=== PATIENT | female | born 1935 | race Caucasian/White ===

== ENCOUNTER 2018-02-09 10:03 | Inpatient (IN) | payer MEDICARE, BC ==
[~2018-02-09] VITALS: Ht 160 cm; Wt 53.5 kg
[2018-02-09 11:03] LABS: BASOPHILS % (AUTO) 1.2 % (0.0-2.0); EOSINOPHILS % (AUTO) 5.6 % (0.0-3.0); HEMATOCRIT 33.8 % (37.0-47.0); HEMOGLOBIN 10.8 G/DL (12.0-16.0); LYMPHOCYTES % (AUTO) 24.4 % (20.0-45.0); MEAN CORPUSCULAR VOLUME 105 FL (80-99); MONOCYTES % (AUTO) 8.7 % (1.0-10.0); NEUTROPHILS % (AUTO) 60.2 % (45.0-75.0); PLATELET COUNT 267 K/UL (150-450); RED BLOOD COUNT 3.23 M/UL (4.20-5.40); WHITE BLOOD COUNT 5.2 K/UL (4.8-10.8)
[2018-02-09 11:22] LABS: ANION GAP 7 mmol/L (5-15); BLOOD UREA NITROGEN 20 mg/dL (7-18); CALCIUM 9.4 MG/DL (8.5-10.1); CARBON DIOXIDE 26 MMOL/L (21-32); CHLORIDE 104 MMOL/L (98-107); CREATININE 1.5 MG/DL (0.55-1.30); POTASSIUM 4.2 MMOL/L (3.5-5.1); SODIUM 137 MMOL/L (136-145)
[2018-02-09 11:28] LABS: ALANINE AMINOTRANSFERASE 17 U/L (12-78); ALBUMIN 3.4 G/DL (3.4-5.0); ALBUMIN/GLOBULIN RATIO 0.9 (1.0-2.7); ALKALINE PHOSPHATASE 73 U/L (46-116); ASPARTATE AMINO TRANSFERASE 19 U/L (15-37); BILIRUBIN,TOTAL 0.3 MG/DL (0.2-1.0)
[2018-02-09 11:35] LABS: APPEARANCE,URINE CLEAR; BILIRUBIN, URINE NEGATIVE (NEGATIVE); COLOR,URINE PALE YELLOW; GLUCOSE, URINE (UA) NEGATIVE (NEGATIVE); KETONES,URINE NEGATIVE (NEGATIVE); LEUKOCYTE ESTERASE ,URINE NEGATIVE (NEGATIVE); NITRITE,URINE NEGATIVE (NEGATIVE); PH,URINE 6 (4.5-8.0); PROTEIN,URINE NEGATIVE (NEGATIVE); UROBILINOGEN,URINE NORMAL MG/DL (0.0-1.0)
--- NOTE | 2018-02-09 11:45 | Diagnostic Imaging Report ---
EXAM: CT Head Without Intravenous Contrast CLINICAL HISTORY: PAIN TECHNIQUE: Axial computed tomography images of the head/brain without intravenous contrast. CTDI is 70.38 + 0.15 mGy and DLP is 1495 mGy-cm. One or more of the following dose reduction techniques were used: automated exposure control, adjustment of the mA and/or kV according to patient size, use of iterative reconstruction technique. COMPARISON: No relevant prior studies available. FINDINGS: Brain: No intracranial hemorrhage. 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 Cataract surgery. Ventricles: No ventriculomegaly. Bones/joints: No acute fracture. Soft tissues: Unremarkable. Sinuses: No acute sinusitis. Mastoid air cells: No mastoid effusion. IMPRESSION: No acute findings.
--- NOTE | 2018-02-09 11:48 | Diagnostic Imaging Report ---
EXAM: CT Lumbar Spine Without Intravenous Contrast CLINICAL HISTORY: PAIN TECHNIQUE: Axial computed tomography images of the lumbar spine without intravenous contrast. CTDI is 18.28 + 0.5 mGy and DLP is 473 mGy-cm. One or more of the following dose reduction techniques were used: automated exposure control, adjustment of the mA and/or kV according to patient size, use of iterative reconstruction technique. COMPARISON: No relevant prior studies available. FINDINGS: Vertebrae: Compression fracture of T12. No retropulsion. Discs/spinal canal/neural foramina: Degenerative changes throughout the lumbar spine. Soft tissues: Unremarkable. Other findings: Hiatal hernia. IMPRESSION: Compression fracture of T12. No retropulsion.
[2018-02-09 12:03] VITALS: BP 107/53
[2018-02-09] MEDS ORDERED: Sodium Chloride 500ML 500 ML IV ONE (12:15)
--- NOTE | 2018-02-09 13:12 | Emergency Room Report ---
History of Present Illness General Chief Complaint: Multiple Trauma/Fall Present Illness HPI Patient is 82-year-old female brought in by EMS after recurrent falls. Patient had been staying at [facility]. The patient was noted to have multiple falls over the past few days. She was complaining of some low back pain. He had patient prior history dementia. Street is markedly limited by patient's mental status. Patient was noted to have the prior DO NOT RESUSCITATE Allergies: Coded Allergies: PENICILLINS (Verified Allergy, Unknown, 02/09/18) Patient History Now: No Reviewed Nursing Documentation: PMH: Agreed; PSxH: Agreed Nursing Documentation-PMH Hx Cardiac Problems: Yes - atherosclerosis of aorta Hx COPD: Yes Hx Gastrointestinal Problems: Yes - hiatal hernia History Of Psychiatric Problem: Yes - depression Hx Neurological Problems: Yes - dementia, encephalopathy Review of Systems All Other Systems: limited - by mental status Physical Exam Vital Signs Date Time Temp Pulse Resp B/P (MAP) Pulse Ox O2 Delivery O2 Flow Rate FiO2 02/09/18 09:53 98.4 87 18 118/78 95 Room Air 98.4 Sp02 EP Interpretation: reviewed, normal General Appearance: normal inspection, well appearing, no apparent distress, alert, Chronically Ill Head: atraumatic ENT: normal ENT inspection, hearing grossly normal, normal voice, dry mucus membranes Neck: normal inspection, supple, no bony tend, limited range of motion Respiratory: normal inspection, lungs clear, normal breath sounds, no respiratory distress, no retraction, no wheezing Cardiovascular #1: regular rate, rhythm, no edema Gastrointestinal: normal inspection, normal bowel sounds, non tender, soft, no guarding, no hernia Genitourinary: no CVA tenderness Musculoskeletal: normal inspection, back normal, normal range of motion Neurologic: normal inspection, alert, responsive, motor weakness - slow speech Psychiatric: normal inspection, judgement/insight normal, mood/affect normal Skin: normal inspection, normal color, no rash Medical Decision Making Diagnostic Impression: Primary Impression: Fall Additional Impressions: T12 compression fracture Dementia Dehydration ER Course Patient presented for fall.Differential diagnosis included was not limited to neck fracture, CVA, close head injury, syncopal episode, basilar ischemia. Because of complexity of patient's case laboratory testing and imaging studies were ordered.The patient was noted to have evidence of dehydration. CT of the head read by radiology showed atrophic changes without evident fracture or intracranial hemorrhage. CT of lumbar spine showed normal bony alignment with T12 compression fracture. Laboratory testing showed a mildly elevated BUN/ creatinine. Dr. Dino Lagos was contacted for inpatient management Labs Test 02/09/18 10:30 02/09/18 10:50 Urine Color Pale yellow Urine Appearance Clear Urine pH 6 (4.5-8.0) Urine Specific Rogers 1.015 (1.005-1.035) Urine Protein Negative (NEGATIVE) Urine Glucose (UA) Negative (NEGATIVE) Urine Ketones Negative (NEGATIVE) Urine Occult Blood Negative (NEGATIVE) Urine Nitrite Negative (NEGATIVE) Urine Bilirubin Negative (NEGATIVE) Urine Urobilinogen Normal MG/DL (0.0-1.0) Urine Leukocyte Esterase Negative (NEGATIVE) Urine RBC 0-2 /HPF (0 - 2) Urine WBC 0-2 /HPF (0 - 2) Urine Squamous Epithelial Cells Occasional /LPF Urine Bacteria Occasional /HPF (NONE) White Blood Count 5.2 K/UL (4.8-10.8) Red Blood Count 3.23 M/UL (4.20-5.40) Hemoglobin 10.8 G/DL (12.0-16.0) Hematocrit 33.8 % (37.0-47.0) Mean Corpuscular Volume 105 FL (80-99) Mean Corpuscular Hemoglobin 33.5 PG (27.0-31.0) Mean Corpuscular Hemoglobin Concent 32.0 G/DL (32.0-36.0) Red Cell Distribution Width 13.0 % (11.6-14.8) Platelet Count 267 K/UL (150-450) Mean Platelet Volume 6.1 FL (6.5-10.1) Neutrophils (%) (Auto) 60.2 % (45.0-75.0) Lymphocytes (%) (Auto) 24.4 % (20.0-45.0) Monocytes (%) (Auto) 8.7 % (1.0-10.0) Eosinophils (%) (Auto) 5.6 % (0.0-3.0) Basophils (%) (Auto) 1.2 % (0.0-2.0) Prothrombin Time 10.3 SEC (9.30-11.50) Prothromb Time International Ratio 1.0 (0.9-1.1) Activated Partial Thromboplast Time 25 SEC (23-33) Sodium Level 137 MMOL/L (136-145) Potassium Level 4.2 MMOL/L (3.5-5.1) Chloride Level 104 MMOL/L (98-107) Carbon Dioxide Level 26 MMOL/L (21-32) Anion Gap 7 mmol/L (5-15) Blood Urea Nitrogen 20 mg/dL (7-18) Creatinine 1.5 MG/DL (0.55-1.30) Estimat Glomerular Filtration Rate mL/min (>60) Glucose Level 89 MG/DL (74-106) Lactic Acid Level 1.30 mmol/L (0.4-2.0) Calcium Level 9.4 MG/DL (8.5-10.1) Total Bilirubin 0.3 MG/DL (0.2-1.0) Aspartate Amino Transf (AST/SGOT) 19 U/L (15-37) Alanine Aminotransferase (ALT/SGPT) 17 U/L (12-78) Alkaline Phosphatase 73 U/L (46-116) Troponin I 0.000 ng/mL (0.000-0.056) Total Protein 7.3 G/DL (6.4-8.2) Albumin 3.4 G/DL (3.4-5.0) Globulin 3.9 g/dL Albumin/Globulin Ratio 0.9 (1.0-2.7) Thyroid Stimulating Hormone (TSH) 0.415 uiU/mL (0.358-3.740) Last Vital Signs Date Time Temp Pulse Resp B/P (MAP) Pulse Ox O2 Delivery O2 Flow Rate FiO2 02/09/18 12:03 98.4 85 13 107/53 97 Room Air 98.4 Status: unchanged Disposition: ADMITTED INPATIENT Condition: Stable Referrals: NON PHYSICIAN (PCP) Panda Goodwin MD Feb 09, 2018 13:12
[2018-02-09 14:00] VITALS: BP 113/55
[2018-02-09] MEDS ORDERED: LAMOTRIGINE150 MG PO (15:26)
[2018-02-09] MEDS ORDERED: ABILIFY2 MG ORAL (15:26)
[2018-02-09] MEDS ORDERED: PAROXETINE HCL40 MG ORAL (15:26)
[2018-02-09] MEDS ORDERED: ALPRAZOLAM0.25 M2 ORAL (15:26)
[2018-02-09] MEDS ORDERED: VITAMIN B122500 MCG PO (15:26)
[2018-02-09] MEDS ORDERED: VITAMIN D400 INTLU ORAL (15:26)
[2018-02-09] MEDS ORDERED: GABAPENTIN100 MG ORAL (15:26)
[2018-02-09] MEDS ORDERED: CRESTOR10 M1 ORAL (15:26)
[2018-02-09] MEDS ORDERED: SEROQUEL50 MG ORAL (15:26)
[2018-02-09] MEDS ORDERED: TYLENOL325 M1 PO (15:26)
[2018-02-09] MEDS ORDERED: NAMENDA5 MG ORAL (15:26)
[2018-02-09] MEDS ORDERED: PLAVIX75 MG ORAL (15:26)
[2018-02-09] MEDS ORDERED: ASPIR 8181 MG ORAL (15:26)
--- NOTE | 2018-02-09 15:46 | History & Physical ---
History and Physical History & Physicial Patient is 82-year-old female brought in by EMS after recurrent falls. Patient had been staying at assisted living at [facility]. The patient was noted to have multiple falls over the past few days. She was complaining of some low back pain. He had patient prior history dementia. Street is markedly limited by patient's mental status. Patient was noted to have the prior DO NOT RESUSCITATE Allergies: PENICILLINS (Verified Allergy, Unknown, 02/09/18) Hx Cardiac Problems: Yes - atherosclerosis of aorta Hx COPD: Yes Hx Gastrointestinal Problems: Yes - hiatal hernia History Of Psychiatric Problem: Yes - depression Hx Neurological Problems: Yes - dementia, encephalopathy Seen in ER DPOA at bed side interviewed examined data reviewed Frequent Falls Anemia Dementia Dehydration FTT T12 compression fracture Tremors likely due to psych meds Plan: Minimize psych meds Hydrate # [id number] MARY LEES Feb 09, 2018 15:46
[2018-02-09] MEDS: D5NS 1,000 ML IV SCH (18:14)
--- NOTE | 2018-02-09 18:15 | History and Physical Report ---
DATE OF ADMISSION: 02/09/2018 HISTORY OF PRESENT ILLNESS: The patient is an 82-year-old female, who was transferred from [facility], the [facility] section, which is a locked unit to our emergency room for frequent falls and failure to thrive. The patient apparently was complaining some degree of back pain. She has history of dementia and she has a DNR status on the records. MEDICATIONS: The list of her medications include Abilify, Neurontin, Lamictal, Namenda, Halcion, vitamin B12, Seroquel, Crestor, aspirin, Plavix, Paxil, and vitamin D. The patient herself is a poor historian, but according to her DPOA, Justyna, who is at the bedside, the patient has been forgetful, has not been eating well, and has been having tremors, and has been falling a few times recently. ALLERGIES: Penicillin. PHYSICAL EXAMINATION: GENERAL: The patient was seen in the emergency room, room 3. VITAL SIGNS: Temperature 98.4, pulse rate 87, respiratory rate 18, blood pressure 118/78, and pulse ox is 95%. HEENT: The patient is comfortable, however, frail with face bilateral cataract surgery evidence. Sclerae are not icteric. Bitemporal wasting. Oral cavity, dentures not seen. The patient has her own teeth. However, there are missing teeth. Tongue is dry. NECK: No thyromegaly. Neck is rigid to all directions. LUNGS: No wheezes. No rhonchi. HEART: Regular with systolic murmur at the apex of left sternal border. ABDOMEN: Soft. EXTREMITIES: Lower extremities, no edema. The patient moves all extremities. LABORATORY RESULTS: Hemoglobin 10.8 and white blood cells 5.2. BUN 20 and creatinine 1.5. TSH 0.4. Urine analysis negative for protein or sugar, 2 rbc's, 2 wbc's, and no leukocyte esterase. The coags studies are also within normal limits. A head CT was done, which is unremarkable for any active findings except for small vessel disease and a spine CT, which was done shows compression fracture of T12. No retropulsion. IMPRESSION: This is an 82-year-old female on multiple psych and antidepressant medication with tremor that has been falling, appears dehydrated, and is anemic with a history of dementia. She also was found to have a T12 compression fracture. Tremor is thought likely to be due to psych medication. PLAN: 1. Minimize the psych medication. 2. Hydrate the patient. 3. Monitor the hemoglobin and hematocrit, electrolytes, and renal parameters. 4. Try to contact her PMD for further discussion and management. I had a long discussion with the DPJustyna GILLESPIE, who is at the bedside. Dino Lagos M.D. DR: JOSE G JOB#: [id number] CC:
[2018-02-09 20:00] VITALS: BP 109/58
[2018-02-09 21:41] VITALS: BP 109/58
[2018-02-10] VITALS: BP 102/56
[2018-02-10 04:00] VITALS: BP 110/60
[2018-02-10] MEDS: D5NS 1,000 ML IV SCH ×2 (05:20→17:28)
[2018-02-10 08:00] VITALS: BP 122/64
[2018-02-10] MEDS: PARoxetine 20mg tab ORAL SCH (08:11)
[2018-02-10] MEDS ORDERED: Vitamin D 1000 IU Tab ORAL SCH (09:00)
[2018-02-10] MEDS ORDERED: Aspirin EC 81mg tab ORAL SCH (09:00)
[2018-02-10] MEDS ORDERED: LaMICtal 150mg tab ORAL SCH (09:00)
[2018-02-10 10:09] LABS: BASOPHILS % (AUTO) 1.8 % (0.0-2.0); HEMATOCRIT 32.4 % (37.0-47.0); HEMOGLOBIN 10.5 G/DL (12.0-16.0); LYMPHOCYTES % (AUTO) 23.5 % (20.0-45.0); MEAN CORPUSCULAR VOLUME 104 FL (80-99); MONOCYTES % (AUTO) 10.2 % (1.0-10.0); NEUTROPHILS % (AUTO) 57.4 % (45.0-75.0); PLATELET COUNT 255 K/UL (150-450); RED BLOOD COUNT 3.11 M/UL (4.20-5.40); RED CELL DISTRIBUTION WIDTH 12.6 % (11.6-14.8); WHITE BLOOD COUNT 4.8 K/UL (4.8-10.8)
[2018-02-10 10:39] LABS: ALANINE AMINOTRANSFERASE 15 U/L (12-78); ALBUMIN/GLOBULIN RATIO 0.8 (1.0-2.7); ALKALINE PHOSPHATASE 68 U/L (46-116); ANION GAP 6 mmol/L (5-15); ASPARTATE AMINO TRANSFERASE 17 U/L (15-37); BILIRUBIN,TOTAL 0.3 MG/DL (0.2-1.0); BLOOD UREA NITROGEN 13 mg/dL (7-18); CALCIUM 8.7 MG/DL (8.5-10.1); CARBON DIOXIDE 26 MMOL/L (21-32); CHLORIDE 107 MMOL/L (98-107); CHOLESTEROL 141 MG/DL (< 200); CREATINE KINASE 61 U/L (26-308); CREATININE 1.3 MG/DL (0.55-1.30); FERRITIN 68 NG/ML (8-388); GAMMA GLUTAMYL TRANSPEPTIDASE 8 U/L (5-85); HDL CHOLESTEROL 80 MG/DL (40-60); PHOSPHORUS 2.8 MG/DL (2.5-4.9); POTASSIUM 3.8 MMOL/L (3.5-5.1); SODIUM 139 MMOL/L (136-145); TRIGLYCERIDES 40 MG/DL (30-150)
[2018-02-10 10:48] LABS: % IRON SATURATION 21 % (15-50); IRON 48 ug/dL (50-175); TOTAL IRON BINDING CAPACITY 229 ug/dL (250-450)
[2018-02-10 12:00] VITALS: BP 122/63
--- NOTE | 2018-02-10 12:29 | General Progress Note ---
Assessment/Plan Problem List: (1) Dehydration ICD Codes: E86.0 - Dehydration SNOMED: 90333138, 351615222 (2) Fall ICD Codes: W19.XXXA - Unspecified fall, initial encounter SNOMED: 3066995, 154969481 (3) T12 compression fracture ICD Codes: S22.080A - Wedge compression fracture of T11-T12 vertebra, initial encounter for closed fracture SNOMED: 838804939 (4) Anemia ICD Codes: D64.9 - Anemia, unspecified SNOMED: 586100374 (5) Tremor due to multiple drugs ICD Codes: G25.1 - Drug-induced tremor SNOMED: 40086464 (6) Failure to thrive SNOMED: 34331185 Status: unchanged Status Narrative This is an 82-year-old female on multiple psych and antidepressant medication with tremor that has been falling, appears dehydrated, and is anemic with a history of dementia. She also was found to have a T12 compression fracture. Tremor is thought likely to be due to psych medication. The CT scan of the brain without contrast reveals an old left frontal infarct, bilateral deep white matter changes, and significant frontotemporal atrophy. remains encephalopathic Assessment/Plan NPO until more awake and St eval Hydrate Pain management Neuro eval Subjective ROS Limited/Unobtainable: No Constitutional: Reports: malaise, weakness Allergies: Coded Allergies: PENICILLINS (Verified Allergy, Unknown, 02/09/18) Objective Last 24 Hour Vital Signs Date Time Temp Pulse Resp B/P (MAP) Pulse Ox O2 Delivery O2 Flow Rate FiO2 02/10/18 08:00 97.1 87 18 122/64 96 Room Air 97.1 02/10/18 08:00 84 02/10/18 04:00 97.3 74 18 110/60 96 Room Air 97.3 02/10/18 04:00 79 02/10/18 00:00 96.6 81 18 102/56 95 Room Air 96.6 02/10/18 00:00 78 02/09/18 21:41 97.5 81 20 109/58 98 Room Air 97.5 02/09/18 20:00 97.5 81 20 109/58 98 Room Air 97.5 02/09/18 20:00 78 02/09/18 16:13 98.4 86 19 113/55 99 Room Air 98.4 6/23/18 16:00 87 02/09/18 14:00 86 19 113/55 99 Room Air Intake and Output 02/09/18 02/10/18 19:00 07:00 Intake Total 600 ml Output Total 900 ml Balance 600 ml -900 ml Intake Oral 100 ml IV Total 500 ml Output Urine Total 900 ml Laboratory Tests 02/10/18 09:55: White Blood Count 4.8, Red Blood Count 3.11L, Hemoglobin 10.5L, Hematocrit 32.4L , Mean Corpuscular Volume 104H, Mean Corpuscular Hemoglobin 33.8H, Mean Corpuscular Hemoglobin Concent 32.4, Red Cell Distribution Width 12.6, Platelet Count 255, Mean Platelet Volume 5.8L, Neutrophils (%) (Auto) 57.4, Lymphocytes ( %) (Auto) 23.5, Monocytes (%) (Auto) 10.2H, Eosinophils (%) (Auto) 7.0H, Basophils (%) (Auto) 1.8, Sodium Level 139, Potassium Level 3.8, Chloride Level 107, Carbon Dioxide Level 26, Anion Gap 6, Blood Urea Nitrogen 13, Creatinine 1.3, Estimat Glomerular Filtration Rate , Glucose Level 105, Hemoglobin A1c 5.2 , Uric Acid 4.7, Calcium Level 8.7, Phosphorus Level 2.8, Magnesium Level 1.8, Iron Level 48L, Total Iron Binding Capacity 229L, Percent Iron Saturation 21, Unsaturated Iron Binding 181, Ferritin 68, Total Bilirubin 0.3, Gamma Glutamyl Transpeptidase 8, Aspartate Amino Transf (AST/SGOT) 17, Alanine Aminotransferase (ALT/SGPT) 15, Alkaline Phosphatase 68, Total Creatine Kinase 61, Troponin I 0.000, Pro-B-Type Natriuretic Peptide 401H, Total Protein 6.7, Albumin 3.0L, Globulin 3.7, Albumin/Globulin Ratio 0.8L, Triglycerides Level 40 , Cholesterol Level 141, LDL Cholesterol 56, HDL Cholesterol 80H, Cholesterol/ HDL Ratio 1.8L, Vitamin B12 Level 1603H, Folate 16.3 Height (Feet): 5 Height (Inches): 3.00 Weight (Pounds): 140 General Appearance: lethargic, confused Cardiovascular: normal rate Respiratory/Chest: decreased breath sounds Abdomen: soft Objective no other change MARY LEES Feb 10, 2018 12:29
--- NOTE | 2018-02-10 14:54 | Consultation ---
Consult Note Consult Note NEUROLOGY CONSULTATION: Full note dictated #[id number] 82 y/o, RH, CF with PH of dementia and behavioral problems. Recently she has been falling frequently and was thus hospitalized. She denies any back pain at this time but she did have a CT of the spine that revealed a T12 compression fracture. ON EXAM: Problems with orientation, recent and remote memory, VS function, HCF & language. L>R VII central Right hemiparesis with brisker DTRs on R. Severely apractic when she was made to stand and could not walk. CT of brain with old left frontal infarct. Bilateral DWM changes. FT atrophy. 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 REC: Continue present Rx. Brain MRI PT/OT Agree with minimizing drugs. Isac Menendez M.D., M.S.P.ISAC CHAVEZ Feb 10, 2018 14:54
[2018-02-10 16:00] VITALS: BP 125/65
--- NOTE | 2018-02-10 19:00 | Consultation ---
DATE OF CONSULTATION: 02/10/2018 NEUROLOGY CONSULTATION CONSULTING PHYSICIAN: Isai Menendez M.D. REQUESTING PHYSICIAN: Dino Lagos M.D. HISTORY: Ms. Alyssa Maki is an 82-year-old, right-handed, lady, who does have a past history of dementia and behavioral problems. Recently, she has been falling frequently and was thus hospitalized. When she was evaluated in the emergency room, she was complaining of back pain and a CT scan of the spine revealed a T10 compression fracture. This consultation was requested to evaluate the patient from a neurological point of view for frequent falls. The patient herself was unable to give me much of history. She said that there was no problem with her memory, there was no problem with the walking, and she then got quite irritated when we were examining her to evaluate her mental status. She also denied any weakness on one side or the other, numbness on one side or the other, problems with speech, problems with language, or problems with vision. PAST MEDICAL HISTORY: Significant for dementia and behavioral problems. FAMILY HISTORY: Unavailable. PERSONAL HISTORY: Unavailable other than her living in a skilled nursing. PRESENT MEDICATIONS: Include lamotrigine 100 mg daily, Pepcid, Plavix, Paxil, Prevacid, Tylenol, and Haldol. PHYSICAL EXAMINATION: GENERAL: She is a well-developed, well-nourished, irritable lady, lying in bed, in no acute distress. VITAL SIGNS: Pulse 92/minute, blood pressure 122/63 mmHg, respirations 18/minute, and temperature 98.1 degrees Fahrenheit. HEAD: Normocephalic and atraumatic. NECK: No neck rigidity was observed. EENT: Benign. SPINE: Cervical, thoracic, and lumbosacral spine revealed no tenderness, no paraspinal muscle spasm, but decreased range of motion. NEUROLOGICAL EXAMINATION: MENTAL STATUS EXAMINATION: She was awake and alert. She was oriented to self only. She had no idea where she was or what the date was. She was able to recall 3/3 words immediately, but could not remember any of them in 1 minute and 3 minutes. She was unable to tell me who the present President was and who prior presidents were. Her mathematical skills were impaired. Her visuospatial function was also impaired. SPEECH: She had no dysarthria. LANGUAGE: She had problems with expressing herself more than problems with comprehension. She also had significant anomia. She made numerous paraphasic errors during spontaneous speech and has significant word-finding problems. CRANIAL NERVE EXAMINATION: II: The visual moralez were intact on confrontation testing. III, IV & : The external ocular movements were full and the pupils 3 mm in diameter, equal, round, regular, and reactive to light. V: She had normal facial sensations and the temporales, masseters, and pterygoids functioned normally. VII: She had left greater than right VII central facial paresis. VIII: She was able to hear well bilaterally and had no nystagmus. IX: The palate moved symmetrically on phonation. X: She had no hoarseness of voice. XI: The sternocleidomastoids and trapezii functioned normally. XII: The tongue was in the midline without any fasciculations or atrophy. MOTOR SYSTEM: The tone was normal in both upper extremities and mildly spastic in both lower extremities. Examination of muscle mass revealed no focal wasting. Examination of power revealed G 5/5 power except for G 4+/5 power in the right finger extensors and G 4/5 power in the right iliopsoas. SENSORY EXAMINATION: She had intact sensations to light touch. She was unable to cooperate for the sensory modalities. REFLEXES: 2++ on the right and 2+ on the left in the biceps, triceps, and brachioradialis, 3+ on the right and 2+ on the left at the knees, 1+ at both ankles. The plantar responses were flexor bilaterally. STANCE: She was severely apractic when she was made to stand up with support on both sides. GAIT: She could not walk even with support on both sides because the legs would not carry her. DIAGNOSTIC IMPRESSION: 1. Ms. Alyssa Maki is an 82-year-old, right-handed, lady, who does have a past history of dementia and behavioral problems, who has recently been falling frequently and as a result, was hospitalized. During one of these falls, she hurt her back and has recently sustained a T12 compression fracture, but at this point in time, does not complain of any pain. 2. On neurological examination at this time, she does demonstrate problems with orientation, recent and remote memory, visuospatial function, higher cognitive function and language, compatible with dementia. 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 3. The CT scan of the brain without contrast reveals an old left frontal infarct, bilateral deep white matter changes, and significant frontotemporal atrophy. 4. Laboratory data revealed that she is anemic with a hemoglobin of 10.5. The chemistry panel revealed that the BUN was elevated to 20, and creatinine was elevated to 1.5. The TSH was normal at 0.41. The Hemoglobin A1c was normal at 5.2%. The Vitamin B12 level was normal at 1603. The Folate was normal at 16.3. The urine analysis was also benign. 5. 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 RECOMMENDATIONS: 1. Agree with management thus far. 2. An MRI scan of the brain should be performed to evaluate the patient for an acute event that may have precipitated the frequent falls. 3. The patient should be worked up thoroughly for cerebrovascular disease. 4. Physical, occupational and speech and language therapy should be started. 5. The patient will be observed closely and depending on how she fares over the next day or so, further recommendations will be given. Thank you for entrusting me with the care of Ms. Maki. I shall follow her with you. Isai Menendez M.D., M.S.P.H. DR: Perfecto JOB#: [id number] SOFIA
[2018-02-10 20:00] VITALS: BP 131/71
[2018-02-11] VITALS: BP 131/63
[2018-02-11] MEDS: D5NS 1,000 ML IV SCH ×2 (03:46→21:18)
[2018-02-11 04:00] VITALS: BP 131/60
[2018-02-11 08:00] VITALS: BP 132/67
[2018-02-11] MEDS: PARoxetine 20mg tab ORAL SCH (08:13)
--- NOTE | 2018-02-11 09:19 | General Progress Note ---
Assessment/Plan Problem List: (1) Dehydration ICD Codes: E86.0 - Dehydration SNOMED: 59742177, 998554531 (2) Fall ICD Codes: W19.XXXA - Unspecified fall, initial encounter SNOMED: 1501414, 236632854 (3) T12 compression fracture ICD Codes: S22.080A - Wedge compression fracture of T11-T12 vertebra, initial encounter for closed fracture SNOMED: 460076427 (4) Anemia ICD Codes: D64.9 - Anemia, unspecified SNOMED: 184449791 (5) Tremor due to multiple drugs ICD Codes: G25.1 - Drug-induced tremor SNOMED: 36973323 (6) Failure to thrive SNOMED: 31751391 (7) Encephalopathy acute ICD Codes: G93.40 - Encephalopathy, unspecified SNOMED: 70659347, 129572743 Status: other - MS improved Status Narrative This is an 82-year-old female on multiple psych and antidepressant medication with tremor that has been falling, appears dehydrated, and is anemic with a history of dementia. She also was found to have a T12 compression fracture. Tremor is thought likely to be due to psych medication. The CT scan of the brain without contrast reveals an old left frontal infarct, bilateral deep white matter changes, and significant frontotemporal atrophy. Assessment/Plan NPO until more awake and St eval Hydrate Pain management Neuro eval appreciated due MRI Subjective ROS Limited/Unobtainable: No Constitutional: Reports: malaise, weakness, other - awake Allergies: Coded Allergies: PENICILLINS (Verified Allergy, Unknown, 02/09/18) Objective Last 24 Hour Vital Signs Date Time Temp Pulse Resp B/P (MAP) Pulse Ox O2 Delivery O2 Flow Rate FiO2 02/11/18 08:00 97.3 66 20 132/67 96 Room Air 97.3 02/11/18 04:00 75 02/11/18 04:00 98.0 77 20 131/60 98 Room Air 98.0 02/11/18 00:00 98.0 73 20 131/63 98 Room Air 98.0 02/11/18 00:00 80 02/10/18 20:00 97.7 81 20 131/71 95 Room Air 97.7 02/10/18 20:00 81 02/10/18 16:00 89 02/10/18 16:00 98.0 93 18 125/65 96 Room Air 98.0 02/10/18 12:00 96 02/10/18 12:00 98.1 92 18 122/63 96 Room Air 98.1 Intake and Output 02/10/18 02/11/18 19:00 07:00 Intake Total 240 ml 900 ml Output Total 400 ml 500 ml Balance -160 ml 400 ml Intake Oral 240 ml IV Total 900 ml Output Urine Total 400 ml 500 ml Laboratory Tests 02/10/18 09:55: White Blood Count 4.8, Red Blood Count 3.11L, Hemoglobin 10.5L, Hematocrit 32.4L , Mean Corpuscular Volume 104H, Mean Corpuscular Hemoglobin 33.8H, Mean Corpuscular Hemoglobin Concent 32.4, Red Cell Distribution Width 12.6, Platelet Count 255, Mean Platelet Volume 5.8L, Neutrophils (%) (Auto) 57.4, Lymphocytes ( %) (Auto) 23.5, Monocytes (%) (Auto) 10.2H, Eosinophils (%) (Auto) 7.0H, Basophils (%) (Auto) 1.8, Sodium Level 139, Potassium Level 3.8, Chloride Level 107, Carbon Dioxide Level 26, Anion Gap 6, Blood Urea Nitrogen 13, Creatinine 1.3, Estimat Glomerular Filtration Rate , Glucose Level 105, Hemoglobin A1c 5.2 , Uric Acid 4.7, Calcium Level 8.7, Phosphorus Level 2.8, Magnesium Level 1.8, Iron Level 48L, Total Iron Binding Capacity 229L, Percent Iron Saturation 21, Unsaturated Iron Binding 181, Ferritin 68, Total Bilirubin 0.3, Gamma Glutamyl Transpeptidase 8, Aspartate Amino Transf (AST/SGOT) 17, Alanine Aminotransferase (ALT/SGPT) 15, Alkaline Phosphatase 68, Total Creatine Kinase 61, Troponin I 0.000, Pro-B-Type Natriuretic Peptide 401H, Total Protein 6.7, Albumin 3.0L, Globulin 3.7, Albumin/Globulin Ratio 0.8L, Triglycerides Level 40 , Cholesterol Level 141, LDL Cholesterol 56, HDL Cholesterol 80H, Cholesterol/ HDL Ratio 1.8L, Vitamin B12 Level 1603H, Folate 16.3, Rapid Plasma Reagin [ Pending] Height (Feet): 5 Height (Inches): 3.00 Weight (Pounds): 140 General Appearance: no apparent distress Cardiovascular: normal rate Respiratory/Chest: decreased breath sounds Abdomen: soft Objective no other change MARY LEES Feb 11, 2018 09:19
--- NOTE | 2018-02-11 09:32 | Diagnostic Imaging Report ---
Indication: Cough Technique: One view of the chest Comparison: none Findings: Lungs and pleural spaces are clear. Heart size is normal. There is a small retrocardiac hiatal hernia. There are degenerative changes of the right shoulder joint. Impression: No acute process
[2018-02-11] MEDS: Haloperidol 5mg/ml Inj IM PRN ×3 (11:46→16:06)
[2018-02-11 12:00] VITALS: BP 111/56
--- NOTE | 2018-02-11 12:19 | Diagnostic Imaging Report ---
Indication: 82-year-old female inpatient with history of frequent falling. Technique: sagittal T1 fast spin echo, axial T1 FLAIR, axial T2 FLAIR, axial T2 FS PROPELLER, axial T2* GRE, axial diffusion weighted images. ADC and exponential ADC maps generated Comparison: Head CT dated 02/09/2018 Findings: No abnormal areas of restricted diffusion to suggest acute infarction. No acute hemorrhage or edema. Focus of cystic encephalomalacia with extensive surrounding gliosis is seen in the left schneider radiata, extending into the insula and frontal operculum, consistent with old infarct, also demonstrated on recent CT. No mass effect nor midline shift. There is age-related enlargement of the ventricles and extra axial CSF spaces. There is mild periventricular deep white matter high T2 signal.. The sinuses are clear. There is evidence of prior bilateral cataract surgery. 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
[2018-02-11] MEDS ORDERED: Haloperidol 1mg tab ORAL SCH (15:45)
[2018-02-11 16:00] VITALS: BP 122/70
[2018-02-11 20:00] VITALS: BP 91/47
--- NOTE | 2018-02-11 20:03 | Neurology Progress Note ---
Interim History Interim History Interim History Ms. Maki feels very sleepy. She denies any new problems. She continues to be cognitively impoverished. She continues to have problems with walking. At this time she refuses to try to walk or even stand up. Review of Systems Neuro Review of Systems Benign. Objective Physical Exam Last Vital Signs Date Time Temp Pulse Resp B/P (MAP) Pulse Ox O2 Delivery O2 Flow Rate FiO2 02/11/18 16:00 93 02/11/18 16:00 97.7 20 122/70 95 Room Air 97.7 Neurologic Exam Objective PHYSICAL EXAMINATION: GENERAL: She is a well-developed, well-nourished, drowsy lady, lying in bed, in no acute distress. HEAD: Normocephalic and atraumatic. NECK: No neck rigidity was observed. EENT: Benign. SPINE: Cervical, thoracic, and lumbosacral spine revealed no tenderness, no paraspinal muscle spasm, but decreased range of motion. NEUROLOGICAL EXAMINATION: MENTAL STATUS EXAMINATION: She was drowsy but could be aroused. When aroused she was awake and alert. She was oriented to self only. She had no idea where she was or what the date was. She was able to recall 3/3 words immediately, but could not remember any of them in 1 minute and 3 minutes. She was unable to tell me who the present President was and who prior presidents were. Her mathematical skills were impaired. Her visuospatial function was also impaired. SPEECH: She had no dysarthria. LANGUAGE: She had problems with expressing herself more than problems with comprehension. She also had significant anomia. She made numerous paraphasic errors during spontaneous speech and has significant word-finding problems. CRANIAL NERVE EXAMINATION: II: The visual moralez were intact on confrontation testing. III, IV & : The external ocular movements were full and the pupils 3 mm in diameter, equal, round, regular, and reactive to light. V: She had normal facial sensations and the temporales, masseters, and pterygoids functioned normally. VII: She had left greater than right VII central facial paresis. VIII: She was able to hear well bilaterally and had no nystagmus. IX: The palate moved symmetrically on phonation. X: She had no hoarseness of voice. XI: The sternocleidomastoids and trapezii functioned normally. XII: The tongue was in the midline without any fasciculations or atrophy. MOTOR SYSTEM: The tone was normal in both upper extremities and mildly spastic in both lower extremities. Examination of muscle mass revealed no focal wasting. Examination of power revealed G 5/5 power except for G 4+/5 power in the right finger extensors and G 4/5 power in the right iliopsoas. SENSORY EXAMINATION: She had intact sensations to light touch. She was unable to cooperate for the sensory modalities. REFLEXES: 2++ on the right and 2+ on the left in the biceps, triceps, and brachioradialis, 3+ on the right and 2+ on the left at the knees, 1+ at both ankles. The plantar responses were flexor bilaterally. STANCE & GAIT: She refused to stand or walk. Impression/Recommendations Diagnostic Impression 1. Ms. Alyssa Maki is an 82-year-old, right-handed, lady, who does have a past history of dementia and behavioral problems, who has recently been falling frequently and as a result, was hospitalized. During one of these falls , she hurt her back and has recently sustained a T12 compression fracture, but at this point in time, does not complain of any pain. 2. She feels very sleepy. She denies any new problems. She continues to be cognitively impoverished. She continues to have problems with walking. At this time she refuses to try to walk or even stand up. 3. On neurological examination at this time, she does demonstrate problems with orientation, recent and remote memory, visuospatial function, higher cognitive function and language, compatible with dementia. 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 4. The CT scan of the brain without contrast reveals an old left frontal infarct , bilateral deep white matter changes, and significant frontotemporal atrophy. 5. Laboratory data revealed that she is anemic with a hemoglobin of 10.5. The chemistry panel revealed that the BUN was elevated to 20, and creatinine was elevated to 1.5. The TSH was normal at 0.41. The Hemoglobin A1c was normal at 5.2%. The Vitamin B12 level was normal at 1603. The Folate was normal at 16.3. The urine analysis was also benign. 6. 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 Negative for acute intracranial bleed or mass effect." 7. The Carotid duplex done on 02/11/18 revealed patent ICAs bilaterally. 8. 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 Recommendations 1. Continue present management. 2 Physical, occupational and speech and language therapy. 3. Increase activity as tolerated. Isai Menendez M.D., M.S.P.ISAI CHAVEZ Feb 11, 2018 20:03
[2018-02-12] VITALS: BP 90/50
[2018-02-12] MEDS: D5NS 1,000 ML IV SCH ×2 (03:04→11:36)
[2018-02-12 04:00] VITALS: BP 134/81
[2018-02-12 08:00] VITALS: BP 126/75
[2018-02-12] MEDS: PARoxetine 20mg tab ORAL SCH (09:06)
[2018-02-12] MEDS ORDERED: Megace 400mg/10ml Susp ORAL SCH (10:45)
--- NOTE | 2018-02-12 10:46 | General Progress Note ---
Assessment/Plan Problem List: (1) Dehydration ICD Codes: E86.0 - Dehydration SNOMED: 00813323, 117928165 (2) Fall ICD Codes: W19.XXXA - Unspecified fall, initial encounter SNOMED: 5118997, 078204056 (3) T12 compression fracture ICD Codes: S22.080A - Wedge compression fracture of T11-T12 vertebra, initial encounter for closed fracture SNOMED: 620730559 (4) Anemia ICD Codes: D64.9 - Anemia, unspecified SNOMED: 253713210 (5) Tremor due to multiple drugs ICD Codes: G25.1 - Drug-induced tremor SNOMED: 74261394 (6) Failure to thrive SNOMED: 40143538 (7) Encephalopathy acute ICD Codes: G93.40 - Encephalopathy, unspecified SNOMED: 24128139, 522742372 Status: stable Assessment/Plan add megace- cardiac diet PT OT Hydrate Pain management Neuro eval appreciated MRI results noted ? DC in am? Subjective ROS Limited/Unobtainable: No Constitutional: Reports: malaise Allergies: Coded Allergies: PENICILLINS (Verified Allergy, Unknown, 02/09/18) Objective Last 24 Hour Vital Signs Date Time Temp Pulse Resp B/P (MAP) Pulse Ox O2 Delivery O2 Flow Rate FiO2 02/12/18 08:00 79 02/12/18 08:00 98.1 81 18 126/75 99 Room Air 98.1 02/12/18 04:00 74 02/12/18 04:00 98.9 90 17 134/81 94 Room Air 98.9 02/12/18 00:00 88 02/12/18 00:00 98.4 86 19 90/50 94 Room Air 98.4 02/11/18 20:00 98.6 99 18 91/47 94 Room Air 98.6 02/11/18 20:00 91 02/11/18 16:00 93 02/11/18 16:00 97.7 90 20 122/70 95 Room Air 97.7 02/11/18 12:00 90 02/11/18 12:00 98.3 94 18 111/56 94 Room Air 98.3 Intake and Output 02/11/18 02/12/18 19:00 07:00 Intake Total 380 ml 945 ml Output Total 600 ml 950 ml Balance -220 ml -5 ml Intake Oral 380 ml 120 ml IV Total 825 ml Output Urine Total 600 ml 950 ml # Voids 1 Height (Feet): 5 Height (Inches): 3.00 Weight (Pounds): 140 General Appearance: no apparent distress Cardiovascular: normal rate Respiratory/Chest: decreased breath sounds Abdomen: soft Neurologic: responsive Objective no other change MARY LEES Feb 12, 2018 10:46
[2018-02-12 12:00] VITALS: BP 139/61
--- NOTE | 2018-02-12 14:29 | Neurology Progress Note ---
Interim History Interim History Interim History Ms. Maki feels better today. She is alert and brighter today. She is eager to go home. She denies any new problems. She continues to be cognitively impoverished. She continues to have problems with walking. She refuses to try to stand and walk at this time. Review of Systems Neuro Review of Systems Benign. Objective Physical Exam Last Vital Signs Date Time Temp Pulse Resp B/P (MAP) Pulse Ox O2 Delivery O2 Flow Rate FiO2 02/12/18 12:00 97.6 84 18 139/61 99 Room Air 97.6 Neurologic Exam Objective PHYSICAL EXAMINATION: GENERAL: She is a well-developed, well-nourished, lady, lying in bed , in no acute distress. HEAD: Normocephalic and atraumatic. NECK: No neck rigidity was observed. EENT: Benign. NEUROLOGICAL EXAMINATION: MENTAL STATUS EXAMINATION: She was awake and alert. She was oriented to self only. She had no idea where she was or what the date was. She was able to recall 3/3 words immediately, but could not remember any of them in 1 minute and 3 minutes. She was unable to tell me who the present President was and who prior presidents were. Her mathematical skills were impaired. Her visuospatial function was also impaired. SPEECH: She had no dysarthria. LANGUAGE: She had problems with expressing herself more than problems with comprehension. She also had significant anomia. She made numerous paraphasic errors during spontaneous speech and has significant word-finding problems. CRANIAL NERVE EXAMINATION: II: The visual moralez were intact on confrontation testing. III, IV & : The external ocular movements were full and the pupils 3 mm in diameter, equal, round, regular, and reactive to light. V: She had normal facial sensations and the temporales, masseters, and pterygoids functioned normally. VII: She had left greater than right VII central facial paresis. VIII: She was able to hear well bilaterally and had no nystagmus. IX: The palate moved symmetrically on phonation. X: She had no hoarseness of voice. XI: The sternocleidomastoids and trapezii functioned normally. XII: The tongue was in the midline without any fasciculations or atrophy. MOTOR SYSTEM: The tone was normal in both upper extremities and mildly spastic in both lower extremities. Examination of muscle mass revealed no focal wasting. Examination of power revealed G 5/5 power except for G 4+/5 power in the right finger extensors and G 4/5 power in the right iliopsoas. SENSORY EXAMINATION: She had intact sensations to light touch. She was unable to cooperate for the sensory modalities. REFLEXES: 2++ on the right and 2+ on the left in the biceps, triceps, and brachioradialis, 3+ on the right and 2+ on the left at the knees, 1+ at both ankles. The plantar responses were flexor bilaterally. STANCE & GAIT: She refused to stand or walk. Impression/Recommendations Diagnostic Impression 1. Ms. Alyssa Maki is an 82-year-old, right-handed, lady, who does have a past history of dementia and behavioral problems, who has recently been falling frequently and as a result, was hospitalized. During one of these falls , she hurt her back and has recently sustained a T12 compression fracture, but at this point in time, does not complain of any pain. 2. She feels better today. She is alert and brighter. She is eager to go home. She denies any new problems. She continues to be cognitively impoverished. She continues to have problems with walking. She refuses to try to stand and walk at this time. 3. On neurological examination at this time, she does demonstrate problems with orientation, recent and remote memory, visuospatial function, higher cognitive function and language, compatible with dementia. 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 4. The CT scan of the brain without contrast reveals an old left frontal infarct , bilateral deep white matter changes, and significant frontotemporal atrophy. 5. Laboratory data revealed that she is anemic with a hemoglobin of 10.5. The chemistry panel revealed that the BUN was elevated to 20, and creatinine was elevated to 1.5. The TSH was normal at 0.41. The Hemoglobin A1c was normal at 5.2%. The Vitamin B12 level was normal at 1603. The Folate was normal at 16.3. The urine analysis was also benign. 6. 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 Negative for acute intracranial bleed or mass effect." 7. The Carotid duplex done on 02/11/18 revealed patent ICAs bilaterally. 8. 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 Recommendations 1. Continue present management. 2 Physical, occupational and speech and language therapy. 3. Increase activity as tolerated. Isai Ordaz M.D., M.S.P.Norberto. ISAI ORDAZ Feb 12, 2018 14:29
[2018-02-12 16:00] VITALS: BP 126/67
[2018-02-12] MEDS: Megace 400mg/10ml Susp ORAL SCH (17:04)
[2018-02-12 20:00] VITALS: BP 114/55
[2018-02-12] MEDS: Heparin 5000 units/ml inj SUBQ SCH (21:03)
[2018-02-13] VITALS: BP 116/67
[2018-02-13 04:00] VITALS: BP 121/64
[2018-02-13 07:54] LABS: BASOPHILS % (AUTO) 0.8 % (0.0-2.0); EOSINOPHILS % (AUTO) 5.8 % (0.0-3.0); HEMOGLOBIN 10.9 G/DL (12.0-16.0); LYMPHOCYTES % (AUTO) 14.4 % (20.0-45.0); MEAN CORPUSCULAR VOLUME 103 FL (80-99); MONOCYTES % (AUTO) 7.2 % (1.0-10.0); NEUTROPHILS % (AUTO) 71.7 % (45.0-75.0); PLATELET COUNT 272 K/UL (150-450); RED BLOOD COUNT 3.12 M/UL (4.20-5.40); RED CELL DISTRIBUTION WIDTH 12.6 % (11.6-14.8); WHITE BLOOD COUNT 7.9 K/UL (4.8-10.8)
[2018-02-13 08:00] VITALS: BP 132/69
--- NOTE | 2018-02-13 08:05 | General Progress Note ---
Assessment/Plan Problem List: (1) Dehydration ICD Codes: E86.0 - Dehydration SNOMED: 83675169, 716564975 (2) Fall ICD Codes: W19.XXXA - Unspecified fall, initial encounter SNOMED: 2080809, 317262711 (3) T12 compression fracture ICD Codes: S22.080A - Wedge compression fracture of T11-T12 vertebra, initial encounter for closed fracture SNOMED: 763363205 (4) Anemia ICD Codes: D64.9 - Anemia, unspecified SNOMED: 240509464 (5) Tremor due to multiple drugs ICD Codes: G25.1 - Drug-induced tremor SNOMED: 22555212 (6) Failure to thrive SNOMED: 45988915 (7) Encephalopathy acute ICD Codes: G93.40 - Encephalopathy, unspecified SNOMED: 24485284, 928274987 Status: stable Assessment/Plan long conversation with DPOA PEG suggested per ST and was declined Patient back to [facility]CF under care of Dr Alston DNR PO KCL once add megace- cardiac diet PT OT Hydrate Pain management Neuro eval appreciated MRI results noted ? DC in am? Subjective ROS Limited/Unobtainable: No Constitutional: Reports: malaise, weakness Allergies: Coded Allergies: PENICILLINS (Verified Allergy, Unknown, 02/09/18) Objective Last 24 Hour Vital Signs Date Time Temp Pulse Resp B/P (MAP) Pulse Ox O2 Delivery O2 Flow Rate FiO2 02/13/18 04:00 97.7 80 19 121/64 95 Room Air 97.7 02/13/18 04:00 97 02/13/18 00:00 98.1 83 18 116/67 94 Room Air 98.1 02/13/18 00:00 79 02/12/18 20:00 82 02/12/18 20:00 97.0 87 18 114/55 94 Room Air 97.0 02/12/18 16:00 86 02/12/18 16:00 97.7 86 18 126/67 97 Room Air 97.7 02/12/18 12:00 97.6 84 18 139/61 99 Room Air 97.6 02/12/18 12:00 86 Intake and Output 02/12/18 02/13/18 19:00 07:00 Intake Total 800 ml 600 ml Output Total 600 ml 800 ml Balance 200 ml -200 ml Intake Oral 0 ml IV Total 800 ml 600 ml Output Urine Total 600 ml 800 ml Current Medications Medications (Trade) Dose Ordered Sig/Jamin Route PRN Reason Start Time Stop Time Status Last Admin Dose Admin Acetaminophen (Tylenol) 650 mg Q4H PRN ORAL Mild Pain/Temp > 100.5 02/09/18 16:15 03/11/18 16:14 02/11/18 15:13 Clopidogrel Bisulfate (Plavix) 75 mg DAILY ORAL 02/10/18 09:00 03/12/18 08:59 02/12/18 09:06 Dextrose/Sodium Chloride 1,000 ml @ 50 mls/hr Q20H IV 02/12/18 12:00 03/11/18 11:59 02/12/18 11:36 Haloperidol Lactate (Haldol) 2 mg Q4H PRN IM Agitation 02/09/18 16:00 03/11/18 15:59 02/11/18 16:06 Heparin Sodium (Porcine) (Heparin 5000 units/ml) 5,000 units EVERY 12 HOURS SUBQ 02/12/18 21:00 03/14/18 20:59 02/12/18 21:03 Lamotrigine (LaMICtal) 100 mg DAILY ORAL 02/11/18 09:00 03/13/18 08:59 02/12/18 09:05 Megestrol Acetate (Megace) 400 mg TWICE A DAY ORAL 02/12/18 18:00 03/14/18 17:59 02/12/18 17:04 Pantoprazole (Protonix) 40 mg DAILY ORAL 02/12/18 12:00 03/14/18 11:59 02/12/18 11:36 Paroxetine HCl (Paxil) 10 mg DAILY ORAL 02/10/18 09:00 03/12/18 08:59 02/12/18 09:06 Quetiapine Fumarate (SEROquel) 12.5 mg Q24H ORAL 02/12/18 17:00 03/14/18 16:59 02/12/18 17:04 Laboratory Tests 02/13/18 07:00: White Blood Count 7.9, Red Blood Count 3.12L, Hemoglobin 10.9L, Hematocrit 32.0L , Mean Corpuscular Volume 103H, Mean Corpuscular Hemoglobin 35.1H, Mean Corpuscular Hemoglobin Concent 34.2, Red Cell Distribution Width 12.6, Platelet Count 272, Mean Platelet Volume 6.0L, Neutrophils (%) (Auto) 71.7, Lymphocytes ( %) (Auto) 14.4L, Monocytes (%) (Auto) 7.2, Eosinophils (%) (Auto) 5.8H, Basophils (%) (Auto) 0.8, Sodium Level [Pending], Potassium Level [Pending], Chloride Level [Pending], Carbon Dioxide Level [Pending], Blood Urea Nitrogen [ Pending], Creatinine [Pending], Estimat Glomerular Filtration Rate [Pending], Glucose Level [Pending], Calcium Level [Pending], Phosphorus Level [Pending], Magnesium Level [Pending], Total Bilirubin [Pending], Aspartate Amino Transf ( AST/SGOT) [Pending], Alanine Aminotransferase (ALT/SGPT) [Pending], Alkaline Phosphatase [Pending], C-Reactive Protein, Quantitative [Pending], Pro-B-Type Natriuretic Peptide [Pending], Total Protein [Pending], Albumin [Pending], Globulin [Pending] Height (Feet): 5 Height (Inches): 3.00 Weight (Pounds): 118 General Appearance: no apparent distress Cardiovascular: normal rate Respiratory/Chest: lungs clear Abdomen: soft Neurologic: other - brighter Objective no other change MARY LEES Feb 13, 2018 08:05
[2018-02-13] MEDS ORDERED: LAMICTAL100 MG ORAL (08:11)
[2018-02-13] MEDS ORDERED: PAROXETINE HCL20 MG ORAL (08:11)
[2018-02-13] MEDS ORDERED: SEROQUEL25 MG ORAL (08:11)
[2018-02-13] MEDS ORDERED: PROTONIX40 MG ORAL (08:11)
[2018-02-13] MEDS ORDERED: MEGACE ORA400 MG/10 ORAL (08:11)
--- NOTE | 2018-02-13 08:12 | Discharge Instructions ---
Discharge Instructions Discharge Instructions Follow up with: follow up by PMD Special Instructions aspiration percautions PT OT ST routine skin care For Congestive Heart Failure Reminder Report to your physician any weight gain of 5 pounds or more in one week. MARY LEES Feb 13, 2018 08:12
[2018-02-13] MEDS: D5NS 1,000 ML IV SCH (08:21)
[2018-02-13] MEDS: Megace 400mg/10ml Susp ORAL SCH (08:21)
[2018-02-13] MEDS: PARoxetine 20mg tab ORAL SCH (08:22)
[2018-02-13] MEDS: Heparin 5000 units/ml inj SUBQ SCH (08:23)
[2018-02-13 09:02] LABS: ALBUMIN 3.2 G/DL (3.4-5.0); ALBUMIN/GLOBULIN RATIO 0.9 (1.0-2.7); ALKALINE PHOSPHATASE 76 U/L (46-116); ANION GAP 11 mmol/L (5-15); ASPARTATE AMINO TRANSFERASE 22 U/L (15-37); BILIRUBIN,TOTAL 0.4 MG/DL (0.2-1.0); BLOOD UREA NITROGEN 11 mg/dL (7-18); CALCIUM 9.6 MG/DL (8.5-10.1); CARBON DIOXIDE 25 MMOL/L (21-32); CHLORIDE 108 MMOL/L (98-107); CREATININE 1.3 MG/DL (0.55-1.30); PHOSPHORUS 2.4 MG/DL (2.5-4.9); POTASSIUM 3.3 MMOL/L (3.5-5.1); SODIUM 143 MMOL/L (136-145)
[2018-02-13 09:25] LABS: ALANINE AMINOTRANSFERASE 20 U/L (12-78)
[2018-02-13 12:00] VITALS: BP 144/81
--- NOTE | 2018-02-13 15:29 | Cardiology Report ---
APPROVED REPORT EKG Measurement Heart [id number] [place] [id number] Normal sinus rhythm Normal ECG
--- NOTE | 2018-02-13 15:39 | Neurology Progress Note ---
Interim History Interim History Interim History Ms. Maki feels well. She is alert and brighter. She is eager to go home. She denies any new problems. She continues to be cognitively impoverished. She continues to have problems with walking. She refuses to try to stand and walk at this time. Review of Systems Neuro Review of Systems Benign. Objective Physical Exam Last Vital Signs Date Time Temp Pulse Resp B/P (MAP) Pulse Ox O2 Delivery O2 Flow Rate FiO2 02/13/18 12:00 97.0 88 20 144/81 98 Room Air 97.0 Laboratory Tests Test 02/13/18 07:00 White Blood Count 7.9 K/UL (4.8-10.8) Red Blood Count 3.12 M/UL (4.20-5.40) L Hemoglobin 10.9 G/DL (12.0-16.0) L Hematocrit 32.0 % (37.0-47.0) L Mean Corpuscular Volume 103 FL (80-99) H Mean Corpuscular Hemoglobin 35.1 PG (27.0-31.0) H Mean Corpuscular Hemoglobin Concent 34.2 G/DL (32.0-36.0) Red Cell Distribution Width 12.6 % (11.6-14.8) Platelet Count 272 K/UL (150-450) Mean Platelet Volume 6.0 FL (6.5-10.1) L Neutrophils (%) (Auto) 71.7 % (45.0-75.0) Lymphocytes (%) (Auto) 14.4 % (20.0-45.0) L Monocytes (%) (Auto) 7.2 % (1.0-10.0) Eosinophils (%) (Auto) 5.8 % (0.0-3.0) H Basophils (%) (Auto) 0.8 % (0.0-2.0) Sodium Level 143 MMOL/L (136-145) Potassium Level 3.3 MMOL/L (3.5-5.1) L Chloride Level 108 MMOL/L (98-107) H Carbon Dioxide Level 25 MMOL/L (21-32) Anion Gap 11 mmol/L (5-15) Blood Urea Nitrogen 11 mg/dL (7-18) Creatinine 1.3 MG/DL (0.55-1.30) Estimat Glomerular Filtration Rate mL/min (>60) Glucose Level 94 MG/DL (74-106) Calcium Level 9.6 MG/DL (8.5-10.1) Phosphorus Level 2.4 MG/DL (2.5-4.9) L Magnesium Level 1.6 MG/DL (1.8-2.4) L Total Bilirubin 0.4 MG/DL (0.2-1.0) Aspartate Amino Transf (AST/SGOT) 22 U/L (15-37) Alanine Aminotransferase (ALT/SGPT) 20 U/L (12-78) Alkaline Phosphatase 76 U/L (46-116) C-Reactive Protein, Quantitative 1.9 mg/dL (0.00-0.90) H Pro-B-Type Natriuretic Peptide 1082 pg/mL (0-125) H Total Protein 6.9 G/DL (6.4-8.2) Albumin 3.2 G/DL (3.4-5.0) L Globulin 3.7 g/dL Albumin/Globulin Ratio 0.9 (1.0-2.7) L Neurologic Exam Objective PHYSICAL EXAMINATION: GENERAL: She is a well-developed, well-nourished, lady, lying in bed , in no acute distress. HEAD: Normocephalic and atraumatic. NECK: No neck rigidity was observed. EENT: Benign. NEUROLOGICAL EXAMINATION: MENTAL STATUS EXAMINATION: She was awake and alert. She was oriented to self only. She had no idea where she was or what the date was. She was able to recall 3/3 words immediately, but could not remember any of them in 1 minute and 3 minutes. She was unable to tell me who the present President was and who prior presidents were. Her mathematical skills were impaired. Her visuospatial function was also impaired. SPEECH: She had no dysarthria. LANGUAGE: She had problems with expressing herself more than problems with comprehension. She also had significant anomia. She made numerous paraphasic errors during spontaneous speech and has significant word-finding problems. CRANIAL NERVE EXAMINATION: II: The visual moralez were intact on confrontation testing. III, IV & : The external ocular movements were full and the pupils 3 mm in diameter, equal, round, regular, and reactive to light. V: She had normal facial sensations and the temporales, masseters, and pterygoids functioned normally. VII: She had left greater than right VII central facial paresis. VIII: She was able to hear well bilaterally and had no nystagmus. IX: The palate moved symmetrically on phonation. X: She had no hoarseness of voice. XI: The sternocleidomastoids and trapezii functioned normally. XII: The tongue was in the midline without any fasciculations or atrophy. MOTOR SYSTEM: The tone was normal in both upper extremities and mildly spastic in both lower extremities. Examination of muscle mass revealed no focal wasting. Examination of power revealed G 5/5 power except for G 4+/5 power in the right finger extensors and iliopsoas. SENSORY EXAMINATION: She had intact sensations to light touch. She was unable to cooperate for the sensory modalities. REFLEXES: 2++ on the right and 2+ on the left in the biceps, triceps, and brachioradialis, 3+ on the right and 2+ on the left at the knees, 1+ at both ankles. The plantar responses were flexor bilaterally. STANCE & GAIT: She refused to stand or walk. Impression/Recommendations Diagnostic Impression 1. Ms. Alyssa Maki is an 82-year-old, right-handed, lady, who does have a past history of dementia and behavioral problems, who has recently been falling frequently and as a result, was hospitalized. During one of these falls , she hurt her back and has recently sustained a T12 compression fracture, but at this point in time, does not complain of any pain. 2. She feels well. She is alert and brighter. She is eager to go home. She denies any new problems. She continues to be cognitively impoverished. She continues to have problems with walking. She refuses to try to stand and walk at this time. 3. On neurological examination at this time, she does demonstrate problems with orientation, recent and remote memory, visuospatial function, higher cognitive function and language, compatible with dementia. 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 4. The CT scan of the brain without contrast reveals an old left frontal infarct , bilateral deep white matter changes, and significant frontotemporal atrophy. 5. Laboratory data revealed that she is anemic with a hemoglobin of 10.5. The chemistry panel revealed that the BUN was elevated to 20, and creatinine was elevated to 1.5. The TSH was normal at 0.41. The Hemoglobin A1c was normal at 5.2%. The Vitamin B12 level was normal at 1603. The Folate was normal at 16.3. The urine analysis was also benign. 6. 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 Negative for acute intracranial bleed or mass effect." 7. The Carotid duplex done on 02/11/18 revealed patent ICAs bilaterally. 8. 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 Recommendations 1. Continue present management. 2. Physical, occupational and speech and language therapy. 3. Increase activity as tolerated. Isai Ordaz M.D., M.S.P.H. ISAI ORDAZ Feb 13, 2018 15:39
[2018-02-13 16:00] VITALS: BP 137/75
--- NOTE | 2018-02-14 05:39 | Discharge Summary ---
Discharge Summary Discharge Summary _ DATE OF ADMISSION: 02/09/2018 DATE OF DISCHARGE: 02/13/2018 CONSULTANTS: Dr. Isai Menendez BRIEF HOSPITAL COURSE: Patient is an 82-year-old female, from [facility] locked unit, was transferred to [facility] for evaluation of frequent falls and failure to thrive. She also was complaining of back pain. She has history of dementia and has a DO NOT RESUSCITATE status on the records. On evaluation at ED, vitals were stable. Hemoglobin was 10.8, WBC 5.2. She has increased creatinine 1.5 and BUN 20. TSH 0.4. Urinalysis was negative. Coagulation studies were within normal limits. She had a head CT done which was unremarkable for any acute finding except for a small vessel disease. Spine CT showed compression fracture on T12. No retropulsion. She was then admitted for further evaluation. Dr. Isai Menendez was consulted. On neurological exam, patient had problems with orientation, recent and remote memory, visuospatial function, higher cognitive function and language compatible with dementia. 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 Blood work showed normal vitamin B12, normal folate and thyroid. She underwent carotid duplex that revealed patent ICAs bilaterally. 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 Negative for acute intracranial bleed or mass effect. Patient's symptoms most compatible with dementia of significance in addition to gait disorder related to the right hemiparesis and gait apraxia. She was given PT, OT and speech therapy. Bedside and video swallow evaluation showed mild to moderate oropharyngeal dysphagia. DPOA refused PEG placement. For quality of life she was continued on oral diet with liquefied pured diet, with nectar thick liquids, strict aspiration precaution and one-to-one feed. She was given IV hydration, potassium supplements and Megace was added to her regimen. She was eventually discharged back to [facility] under Dr. Alston. FINAL DIAGNOSES: Dehydration Falls, prior to admission T12 compression fracture Anemia Tremor due to multiple drugs Failure to thrive Acute encephalopathy DISPOSITION: Patient was discharged back to [facility]. DISCHARGE MEDICATIONS: Refer to Discharge Medication List. I have been assigned to dictate discharge summary on this account, and I was not involved in the patient's management. Misty Heard NP Feb 14, 2018 05:39
== END 2018-02-13 18:36 | DRG 551 ==
LOC: EDBD 10:03 → EMR 10:52 → 2E 12:22 → EDBEDREQSVC 12:50 → EDBEDREQ 12:50
DX: S22.080A Wedge compression fracture of T11-T12 vertebra, initial encounter for closed fracture (principal); G93.40 Encephalopathy, unspecified; N17.9 Acute kidney failure, unspecified; G81.91 Hemiplegia, unspecified affecting right dominant side; F03.91 Unspecified dementia, unspecified severity, with behavioral disturbance; E86.0 Dehydration; D64.9 Anemia, unspecified; Z88.0 Allergy status to penicillin; R13.12 Dysphagia, oropharyngeal phase; G25.1 Drug-induced tremor; T50.995A Adverse effect of other drugs, medicaments and biological substances, initial encounter; Z91.81 History of falling; Z79.02 Long term (current) use of antithrombotics/antiplatelets; Z66 Do not resuscitate; R62.7 Adult failure to thrive; R48.2 Apraxia
CPT/HCPCS: 36415; 70450; 70551; 71045; 72131; 74230; 80053; 80061; 81001; 82550; 82607; 82728; 82746; 82977; 83036; 83540; 83550; 83605; 83735; 83880; 84100; 84443; 84484; 84550; 85025; 85610; 85730; 86140; 86592; 87040; 87081; 87086; 93005; 93880; 99285; J8499